=== PATIENT | male | born 1970 | race Caucasian/White ===

== ENCOUNTER 2020-04-03 10:45 | Emergency (ER) | payer OTHER, SELFPAY ==
--- NOTE | ~2020-04-03 | CT_ITS ---
EXAMINATION: CT brain wo con DATE: 04/03/2020 11:47 INDICATION: Head injury. TECHNIQUE: Computed tomography (CT) of the head was performed without intravenous contrast. The mA wa s adjusted according to patient size. Iterative reconstruction technique was employed. The dose-lengt h product was 605.33 mGy-cm. COMPARISON: None FINDINGS: There is no intracranial hemorrhage, acute infarction, or abnormal intracranial mass lesion . The ventricles are normal in size. There is mucosal thickening in the paranasal sinuses. The orbits are normal. The mastoid air cells are normal. IMPRESSION: 1. Normal brain. Reviewed, dictated and finalized at location A. T L[employer] SPECIALIST IMPRESSION: 1. Normal brain.
[2020-04-03 10:51] VITALS: BP 180/102; PULSE 81; RESP 20; TEMP 36.3; O2SAT 100
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
--- NOTE | 2020-04-03 12:00 | PC.NURSE ---
patient back from CT. no change in condition. placed on monitor.does want meds now for headache.
[2020-04-03 12:02] VITALS: PULSE 76; RESP 16; O2SAT 100
== END 2020-04-03 12:11 | disposition home or self-care (01) ==
PROVIDERS: Emergency Provider General Practice; PCP Family Medicine
DX: S09.90XA Unspecified injury of head, initial encounter (principal); R03.0 Elevated blood-pressure reading, without diagnosis of hypertension; G47.30 Sleep apnea, unspecified; W22.09XA Striking against other stationary object, initial encounter
CPT/HCPCS: 70450; 99284

== ENCOUNTER 2021-09-25 15:08 | Emergency (ER) | payer OTHER, SELFPAY ==
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
[2021-09-25 15:22] VITALS: BP 154/102; PULSE 95; RESP 16; TEMP 37.2; O2SAT 99
[2021-09-25] MEDS: TETANUS,DIPHTHERIA,AC PERTUSSIS ADULT (0.5 ML) BOOSTRIX IM (15:40)
== END 2021-09-25 15:42 | disposition home or self-care (01) ==
PROVIDERS: Emergency Provider Nurse Practitioner Family; PCP Family Medicine
DX: S61.431A Puncture wound without foreign body of right hand, initial encounter (principal); W45.8XXA Other foreign body or object entering through skin, initial encounter; Z23 Encounter for immunization; G47.30 Sleep apnea, unspecified
CPT/HCPCS: 90471; 90715; 99213; G0463

== ENCOUNTER 2022-05-13 12:44 | Emergency (ER) | payer OTHER, SELFPAY ==
--- NOTE | ~2022-05-13 | XR_ITS ---
EXAMINATION: XR elbow RT min 3V DATE: 05/13/2022 13:24 INDICATION: Right elbow injury and pain. TECHNIQUE: 4 views of right elbow were obtained. COMPARISON: None. FINDINGS: Bone alignment is normal. No fracture. There is mild elbow joint osteoarthritis. There is a small elbow joint effusion. IMPRESSION: 1. Mild elbow joint osteoarthritis. 2. Small elbow joint effusion. Reviewed, dictated and finalized at location A. IS COUNSELOR
--- NOTE | ~2022-05-13 | XR_ITS ---
EXAMINATION: XR wrist RT min 3V INDICATION: Right wrist pain TECHNIQUE: Four views of the right wrist are obtained. COMPARISON: None available FINDINGS: No fracture, dislocation, or subluxation. The bones, soft tissues, and joint spaces are nor mal. IMPRESSION: 1. No acute osseous abnormality. Reviewed, dictated and finalized at location L. SERVICE TEAM MEMBER
[2022-05-13 13:05] VITALS: BP 140/93; PULSE 82; RESP 16; TEMP 36.4; O2SAT 100
--- NOTE | 2022-05-13 13:06 | ED.UPPEXIN ---
HPI - Extremity Injury (Upper) General Chief Complaint: Extremity Injury, Upper Stated Complaint: rt wrist and arm injury Time Seen by Provider: 05/13/22 13:26 Source: patient and RN notes reviewed Mode of arrival: ambulatory Limitations: no limitations History of Present Illness HPI narrative: 52-year-old male presents with concern for right elbow and wrist injury. He reports on he fell off a ladder catching himself on his right arm. Reports he had initially some swelling. Reports his swelling has improved pain has improved, he however continues to have some right elbow tenderness and some wrist pain with flexion and extension. He reports he has intermittently taken Aleve. He denies redness, swelling, open skin. MD complaint: injury to: right, elbow and wrist Related Data Home Medications Medication Instructions Recorded Confirmed No Home Medications 05/13/22 05/13/22 Allergies Allergy/AdvReac Type Severity Reaction Status Date / Time No Known Allergies Allergy Verified 05/13/22 13:01 Review of Systems Review of Systems: CONSTITUTIONAL: Denies malaise, chills, sweats, or fever. SKIN: Denies rash or itching, open skin, laceration, abrasion, redness, warmth, swelling. MUSCULOSKELETAL: Reports right elbow tenderness, wrist pain NEUROLOGIC: Denies numbness, weakness All systems reviewed & are unremarkable except as noted in HPI and below PMFSH Past Medical History Medical History Sleep apnea Surgical History Surgical History No significant past surgical history Social History Social History Smoking status: Never smoker Alcohol intake: current Comments At time of signature, agree with nursing past medical, surgical, social and family history. There is no relevant family history pertinent to the presenting complaint Exam Narrative: GENERAL: Well-appearing, well-nourished, and in no acute distress. HEAD: Normocephalic, atraumatic. EYES: PERRLA, conjunctivae clear NECK: Supple. CHEST: Speaks in full sentences. No respiratory distress. HEART: Regular rate and rhythm. Normal and equal peripheral pulses. EXTREMITIES: Right elbow, wrist, hand, digits have normal strength and sensation, normal range of motion. No edema or ecchymosis. 5/5 strength with elbow, wrist, digits flexion and extension. Normal sensation with sensitivity to light touch and pain. Lateral elbow tenderness. No open wounds, no skin tenting, no devitalized tissue or atrophy, no trophic changes, no obvious deformity, alignment normal, nearby joints and structures intact. Distal pulses palpable and equal bilaterally, skin warm, dry, pink. Capillary refill less than 3 seconds. SKIN: Warm, dry, no rash. NEURO: Alert and oriented x3. PSYCH: Normal mood and affect Course Course Emergency Course: Patient is aware of diagnosis, understands and agrees to treatment plan. Anticipatory guidance given. Patient agrees to follow-up as directed and is aware of reasons to seek care at the emergency department. Portions of this record may have been created with voice recognition software Level of Care: Express Care Visit Vital Signs Vital signs: Vital Signs Temperature 97.5 F L 05/13/22 13:05 Pulse Rate 82 05/13/22 13:05 Respiratory Rate 16 05/13/22 13:05 Blood Pressure 140/93 H 05/13/22 13:05 Pulse Oximetry 100 05/13/22 13:05 Oxygen Delivery Room Air 05/13/22 13:05 Temperature 97.5 F L 05/13/22 13:05 Pulse Rate 82 05/13/22 13:05 Respiratory Rate 16 05/13/22 13:05 Blood Pressure 140/93 H 05/13/22 13:05 Pulse Oximetry 100 05/13/22 13:05 Oxygen Delivery Room Air 05/13/22 13:05 Reviewed. MDM - Extremity Injury (Upper) MDM Narrative Medical decision making narrative: Patients injury and pain is consistent with mu
== END 2022-05-13 13:40 | disposition home or self-care (01) ==
PROVIDERS: Emergency Provider Nurse Practitioner; PCP Family Medicine
DX: M25.421 Effusion, right elbow (principal); M25.531 Pain in right wrist
CPT/HCPCS: 73080; 73110; 99214; A4565; G0463